=== PATIENT | female | born 1955 | race Caucasian/White ===

== ENCOUNTER 2017-02-14 11:24 | Emergency (ER) | payer OTHER ==
[~2017-02-14] VITALS: Ht 152.4 cm; Wt 71.0 kg
[2017-02-14 11:27] VITALS: BP 142/79; PULSE 79; RESP 16; O2SAT 98
--- NOTE | 2017-02-14 11:48 | ED.REPORT ---
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 A few days ago she started seeing black spots in her vision but attributed them to her cataracts. Yesterday she had a severe headache that has since resolved. She has been more fatigued over the last few days. Per daughter , she has was very agitated last night and was experiencing toothaches. Her daughter also reports slurred speech and L sided facial droop. She denies numbness, focal weakness, or any other symptoms. Nursing Notes Stated Complaint: SLURRED SPEECH,SENT FROM Chief Complaint: Stroke Symptoms Nursing Notes Reviewed: Yes (Synapse, meds not reconciled) Allergies: Coded Allergies: No Known Allergies (Unverified , 02/14/17) General Time Seen by Provider: 11:47 Chief Complaint Other (Trouble with speech ) Hx Obtained From: Patient, Daughter Arrived By: Walk-in Time last known well 0900 Sudden in Onset?: Yes Symptom Duration: Since onset Progression Since Onset: Gradually improving Severity: Current: No pain currently Severity: Maximum: No pain Similar Sx Previous: No Risk Factors )( TPA Administration/Criteria Stroke Thrombolytic Therapy : TPA Considered: Yes Neurologist Contacted: No TPA Administered Intravenously: No, not indicated (NIH stroke scale of 0) NIH Stroke Scale Level of Consciousness: Alert and responsive (0) Ask Month & Age: Both questions right (0) Open/Close Eyes/Hand Funeral Planning Counselor: Performs both tasks (0) Horizontal EO Movements: None (0) Visual James: No visual loss (0) Facial Palsy: Normal symmetry (0) Right Arm Motor Drift (10s): No drift 10 sec (0) Left Arm Motor Drift (10s): No drift 10 sec (0) Right Leg Motor Drift (5s): No drift 5 sec (0) Left Leg Motor Drift (5s): No drift 5 sec (0) Sensation (Arms/Legs/Face): No sensory loss (0) Language Aphasia: No aphasia, normal (0) Dysarthria: No dysarthria, normal (0) Extinction/Inattention: No exctinct/inattent (0) NIHSS Score: 0 Time NIHSS Performed: 12:03 Date NIHSS Performed: Feb 14, 2017 )( CVA Risk Stratification No Age >60, No Atrial fibrillation, No Diabetes mellitus, No EtOH use, No Hyperlipidemia, No Hypertension, No Prior CVA/TIA, No Smoking Risk factors reviewed Past Medical History Past Medical History hypothyroid asthma depression 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 Physical Exam Initial Vital Signs Vital Signs (First) Date Time Temp Pulse Resp B/P Pulse Ox O2 Delivery O2 Flow Rate FiO2 02/14/17 11:27 36.9 79 16 142/79 98 Room Air Initial VS: Reviewed, Vital signs normal General/Constitutional: Awake, Alert, No acute distress, Well appearing, Well developed Head / Eyes: Atraumatic, Normocephalic, PERRL, EOMI Neck: Supple, Full range of motion Respiratory / Chest: Breath sounds NL, Breath sounds = bilat, No respiratory distress Cardiovascular: Heart rate NL, Regular rhythm, Heart sounds NL Neurologic: Oriented X3, Speech NL NIH stroke scale 0 No lateralizing findings Patient feels her speech is still abnormal but it is not obvious to me, ENT: Airway patent, Pharynx NL No sign of dental infection Interpretation & Diagnostics Lab Results Interpretation Result Diagram: 02/14/17 1242 02/14/17 1242 Test 02/14/17 12:36 02/14/17 12:42 Urine Color Yellow (YELLOW) Urine Appearance Clear (CLEAR,HAZY) Urine pH 5.0 (5.0-8.0) Urine Specific [place] 1.020 (1.003-1.035) Urine Protein Negativemg/dL (NEG,TRACE) Urine Glucose (UA) Negativemg/dL (NEGATIVE) Urine Ketones Negativemg/dL (NEGATIVE) Urine Occult Blood Negative (NEGATIVE) Urine Nitrite Negative (NEGATIVE) Urine Bilirubin Negative (NEGATIVE) Urine Urobilinogen Normalmg/dL (NORMAL) Urine Leukocyte Esterase Negative (NEGATIVE) Urine RBC 0-2/hpf (0-2) Urine WBC 0-5/hpf (0-5) Urine Epithelial Cells Few/hpf (NONE-MOD) Urine Crystals None seen (NONE SEEN) Urine Bacteria None/hpf (NONE-FEW) Urine Hyaline Casts None/lpf (NONE) Urine Granular Casts None seen (NONE SEEN) Urine Waxy Casts None seen (NONE SEEN) Urine Red Blood Cell Casts None seen (NONE SEEN) Urine White Blood Cell Casts None seen (NONE SEEN) Urine Mucus None seen (None Seen) Urine Trichomonas None seen (NONE SEEN) Urine Yeast None (NONE SEEN) Urinalysis Comment None Urine Culture Reflexed Not indicated White Blood Count 4.3th/mm3 (3.8-10.1) Red Blood Count 4.58mil/mm3 (3.90-5.20) Hemoglobin 14.0g/dL (12.0-15.6) Hematocrit 41.9% (35.0-46.0) Mean Corpuscular Volume 91.5fL (81-100) Mean Corpuscular Hemoglobin 30.6pg (27.0-35.0) Mean Corpuscular Hemoglobin Concent 33.4% (32.0-37.0) Red Cell Distribution Width 12.9% (12.3-15.4) Platelet Count 208bil/L (150-400) Neutrophils (%) (Auto) 58.0% (40-74) Lymphocytes (%) (Auto) 29.1% (14-46) Monocytes (%) (Auto) 11.0% (4-12) Eosinophils (%) (Auto) 1.4% (0-5) Basophils (%) (Auto) 0.5% (0-3) Prothrombin Time 10.1sec (8.1-12.5) Prothromb Time International Ratio 0.95ratio Activated Partial Thromboplast Time 26.8sec (22.8-33.0) Sodium Level 140mEq/L (134-144) Potassium Level 4.1mEq/L (3.5-5.2) Chloride Level 102mEq/L (97-108) Carbon Dioxide Level 26mmol/L (18-29) Blood Urea Nitrogen 21mg/dL (6-24) Creatinine 0.68mg/dL (0.57-1.00) Estimat Glomerular Filtration Rate 127mL/min (>59) Glucose Level 92mg/dL (60-99) Calcium Level 10.1mg/dL (8.5-10.1) Total Bilirubin 0.3mg/dL (0.0-1.2) Aspartate Amino Transf (AST/SGOT) 23U/L (0-50) Alanine Aminotransferase (ALT/SGPT) 25U/L (0-32) Alkaline Phosphatase 108U/L (25-165) Troponin T < 0.010ug/L (0.0-0.011) Total Protein 7.5g/dL (6.4-8.4) Albumin 4.6g/dL (3.4-5.0) Lab Results Interpretation: MRI: IMPRESSION: BRAIN MRI: No MRI evidence of acute infarction or acute intracranial pathology. BRAIN MR ANGIOGRAM: Intracranial arterial vasculature is patent. NECK MR ANGIOGRAM: Arterial vasculature of the neck is patent. The estimate of stenosis included in the report of the imaging study was calculated using the NASCET method Dictated by: Timbo Strauss M.D. on 02/14/2017 at 14:39 Approved by: Timbo Strauss M.D. on 02/14/2017 at 14:46 ECG Interpretation ECG Interpretation: Sinus rate 68 no abnormalities no prior Time: 12:42 Interpreted by: ED physician CT Head Interpretation IMPRESSION: No CT evidence of acute intracranial pathology. Dictated by: Timbo Strauss M.D. on 02/14/2017 at 12:18 Approved by: Timbo Strauss M.D. on 02/14/2017 at 12:20 Study: Head CT no contrast Interpretation / Wet Read by: Interpret - Radiologist Re-Eval/Medical Decision Med Decision/Clinical Course This is a 61-year-old female brought with concern for stroke. This apparently extensive family history of stroke, and at 9:00 this morning the patient was noted to have some difficulty with word finding, and possibly a left facial droop-some family brought her in. She reports she is doing better, as does the family. Symptoms lasted multiple hours. Department the patient still feels that her speech is not normal, but is not clinically apparent- for me her NIH stroke scale is 0. sHe is not a candidate for TPA. While in the department patient reports she returned to normal, family agrees. There is no clinically evident change. She is in a normal sinus rhythm, no otherwise has a normal exam. Was pursued, CT was negative, MRI/MRA was negative. Blood work was normal. EKG was normal. The patient supposedly had symptoms for a prolonged period, in the setting of negative MRI MRA this only IUs against a stroke. Glucose is normal. There is no clinical features to suggest seizure. At this point a dangerous etiology is not evident. Patient's clinically well-appearing. Interestingly this event occurred after severe emotional event with a large family argument. Patient's asymptomatic, has a normal exam the department. Patient is being discharged with follow-up with PCP. Return precautions reviewed. Source of Hx: Old records Re-Evaluation/Progress : Time of Eval: 14:57 )( Re-Eval Neurologic Exam: Alert Re-Evaluation/Progress Note: Discussed imaging results and plan for discharge. Patient understands and agrees with plan. All questions addressed at this time. Differential Diagnosis: Negative: Atrial fibrillation, Cerebellar hemorrhage, Cerebrovascular accident, Closed head injury, Complex migraine, Electrolyte disorder, Epidural hemorrhage, Hypoglycemia, Intoxication, alcohol, Intraparench hemorrhage, Malignancy, Mass lesion, Sepsis, Subarachnoid hemorrhage, Subdural hemorrhage, Matti's paralysis Counseled Regarding: Diagnosis, Lab results, Need for follow-up, When/why to return to ED Patient Discharge & Departure Impression: Primary Impression: Transient neurological symptoms Disposition: Home Discharge Condition All VS Reviewed: Yes Condition: Stable Additional Instructions: 1. A dangerous cause of the symptoms was not identified. All these symptoms were concerning for the possibility of a stroke or TIA-both her CT scan and MRI were negative. 2. Continue current care. 3. Return to the emergency room and if he develop new or worsening symptoms. 4. Follow-up with Dr. Kruse this coming week. Scribe Attestation Portions of this note were transcribed by Jamil Trevino. I, Dr. Blood personally performed the history, physical exam and medical decision-making; I reviewed and confirmed the accuracy of the information in the transcribed note. Signed by: Jamil Trevino 02/14/2017, 1519 Corby Blood MD Feb 14, 2017 11:48 JAMIL TREVINO Feb 14, 2017 11:56
--- NOTE | 2017-02-14 12:28 | DRSVH ---
PROCEDURE: CT BRAIN WITHOUT CONTRAST ([id number]) INDICATIONS: Stroke, expressive aphasia TECHNIQUE: Noncontrast 4.5 mm thick angled axial sections acquired from the foramen magnum to the vertex, with c oronal reformats. COMPARISON: None. FINDINGS: Image quality: Excellent. CSF spaces: Basal cisterns are patent. No extra-axial fluid collections. Ventricles are normal in size and shape. Brain: No midline shift. No intracranial masses or hemorrhage. Carlson-white matter interface is norm al. Skull and face: Calvarium and visualized facial bones are intact, without suspicious lesions. Sinuses: Visualized sinuses and mastoids are clear. IMPRESSION: No CT evidence of acute intracranial pathology. Dictated by: Timbo Strauss M.D. on 02/14/2017 at 12:18 Approved by: Timbo Strauss M.D. on 02/14/2017 at 12:20
[2017-02-14 12:48] LABS: BASOPHILS % (AUTO) 0.5 % (0-3); EOSINOPHILS % (AUTO) 1.4 % (0-5); Mean Corpuscular Hemoglobin 30.6 pg (27.0-35.0); Mean Corpuscular Volume 91.5 fL (81-100); Platelet Count 208 bil/L (150-400)
[2017-02-14 13:14] LABS: INR 0.95 ratio
[2017-02-14 13:16] LABS: APPEARANCE,URINE CLEAR (CLEAR,HAZY); COLOR,URINE YELLOW (YELLOW); OCCULT BLOOD,URINE NEGATIVE (NEGATIVE); UROBILINOGEN,URINE NORMAL (NORMAL)
[2017-02-14 13:30] LABS: TROPONIN T < 0.010 ug/L (0.0-0.011)
[2017-02-14 14:37] VITALS: BP 140/95; PULSE 90; RESP 13; O2SAT 99
--- NOTE | 2017-02-14 14:48 | DRSVH ---
PROCEDURE: MRI STROKE PROTOCOL ([id number]) Pre- and post-contrast brain MRI, non-contrast brain MR angiogram, pre- and postcontrast neck MR rachelle ogram INDICATIONS: Expressive aphasia,left side facial droop TECHNIQUE: Brain: Noncontrast axial T1 spin echo, axial T2 fast spin echo, sagittal and axial FLAIR, coronal T2 fast spin echo, axial gradient echo, axial diffusion and ADC through the brain. After the administr ation of contrast, axial 3D VIBE of the cranial vasculature and brain. Brain MRA: Non-contrast 3-D time of flight MR angiogram, with multiple svhlfns-drlbebnuk-qrwgyhepqu (MIP) reformats performed. Neck MRA: Axial and sagittal TruFISP through the neck. Coronal dynamic MR angiogram during administ ration of contrast in the arterial and venous phases, with 3-dimenstional sogfubj-kqbptvhpy-rhabzkegz n (MIP) reformats constructed from subtraction images. COMPARISON: None. FINDINGS: Image quality: Excellent. BRAIN: CSF spaces: Ventricles are normal in size and shape. Basal cisterns are patent. No extra-axial flu id collections. Brain: No intracranial bleeds or mass effects. Carlson-white matter interface is normal. Diffusion we ighted images show no acute ischemic insults. Brainstem appears normal. Normal intravascular flow v oids are present. No abnormal intracranial enhancement. Skull and face: Calvarial marrow signal is normal. Orbits appear normal. Sinuses: Sinuses and mastoids are clear. BRAIN MR ANGIOGRAM: Anterior circulation: Intracranial internal carotid arteries are normal in size and enhancement. Th e flow within the paired anterior cerebral arteries is normal and symmetric. The flow within the mid dle cerebral arteries is normal and symmetric. The anterior communicating artery is seen. No stenos es, occlusions, or aneurysms. Posterior circulation: The visualized portions of the vertebral arteries demonstrate normal caliber, and join to form a normal appearing basilar artery. The flow within the posterior cerebral arteries is normal and symmetric. No stenoses, occlusions, or aneurysms. NECK MR ANGIOGRAM: Carotids: Great vessels demonstrate a conventional anatomy as they arise from the aortic arch. The origins of the common carotid arteries appear patent. The calibers and courses of both common caroti d arteries are normal. The bifurcation regions appear normal bilaterally. The internal carotid ale judie demonstrate normal course and caliber. Posterior circulation: The origins of the vertebral arteries appear patent. More superior portions of both vertebral arteries demonstrate normal course and caliber, and join to form a normal appearing basilar artery. A right posterior communicating artery is patent. No definite left posterior commun icating artery is identified. Miscellaneous: Subclavian arteries appear patent. Pre-contrast images through the neck show no soft tissue abnormalities. IMPRESSION: BRAIN MRI: No MRI evidence of acute infarction or acute intracranial pathology. BRAIN MR ANGIOGRAM: Intracranial arterial vasculature is patent. NECK MR ANGIOGRAM: Arterial vasculature of the neck is patent. The estimate of stenosis included in the report of the imaging study was calculated using the NASCET method Dictated by: Timbo Strauss M.D. on 02/14/2017 at 14:39 Approved by: Timbo Strauss M.D. on 02/14/2017 at 14:46
[2017-02-14 15:19] VITALS: BP 121/64; PULSE 85; RESP 16; O2SAT 99
== END 2017-02-14 15:20 | disposition home or self-care (01) ==
LOC: SED 11:24
DX: R29.810 Facial weakness (principal); R47.81 Slurred speech; R53.83 Other fatigue; R45.1 Restlessness and agitation; K08.89 Other specified disorders of teeth and supporting structures; H53.9 Unspecified visual disturbance; E03.9 Hypothyroidism, unspecified; J45.909 Unspecified asthma, uncomplicated; F32.9 Major depressive disorder, single episode, unspecified; G47.8 Other sleep disorders
CPT/HCPCS: 36415; 70450; 70549; 70553; 80053; 81000; 84484; 85025; 85610; 85730; 93005; 96374; 99285; A9585; J2060